=== PATIENT | female | born 1990 | race Caucasian/White ===

== ENCOUNTER 2019-01-16 17:03 | Emergency (ER) | payer SELFPAY ==
[2019-01-16 17:05] VITALS: BP 142/97; PULSE 89; RESP 18; TEMP 36.7; O2SAT 96; BMI 31.8
--- NOTE | 2019-01-16 17:53 | US_ITS ---
STUDY: ULTRASOUND OF THE FEMALE PELVIS - COMPLETE REASON FOR EXAM: Female, 29 years old. Pain. LMP: Unknown. TECHNIQUE: Transvaginal TECHNICAL QUALITY: Adequate. COMPARISON: None. FINDINGS: The uterus is anteverted and is in a midline position. The uterus measures 7.0 x 4.7 x 3.2 cm. Normal uterine cervix. The endometrium measures 2 mm in thickness, and is hyperechoic. There is no demonstrated endometrial mass. There is no demonstrated myometrial mass. I.U.D. - The patient does not have an I.U.D. The right ovary is visualized. The right ovary measures 2.7 x 1.9 x 1.6 cm. There is no right ovarian cyst or ovarian mass. There is no visualized right adnexal mass or complex lesion. There is normal arterial and normal venous vascularity. The left ovary is visualized. The left ovary measures 3.7 x 3.0 x 2.8 cm. There is 2.4 cm cyst. There is no visualized left adnexal mass or complex lesion. There is normal arterial and normal venous vascularity. There is no fluid in the cul-de-sac. US/Transvaginal Non- IMPRESSION: Left adnexal cyst. Electronically Signed: Matthew Ornelas MD at 19:28 EDT , Service support ,
--- NOTE | 2019-01-16 17:55 | ED.DCSUM_ITS ---
- ER Visit Summary Date of Service: 01/16/19 Chief Complaint: Vaginal bleeding History of Present Illness: The patient is a 29 F presenting with vaginal bleeding, left lower quadrant pain. Patient states she had a normal period December 31. She states she began spotting and then bleeding heavier today. She had took a test 4 days ago which was negative. She has a history of PCOS. She states she typically has regular periods. She denies fever. Denies urinary complaints. Denies other complaints. Physical Examination: Vitals are stable. Patient is afebrile. Alert no acute distress. HEENT exam is unremarkable. Neck is supple. Lungs are clear and equal bilaterally. Heart is regular rate and rhythm. Abdomen is soft mild left lower quadrant tenderness with no rebound or guarding. Left inguinal tenderness with no hernia palpated Extremities are unremarkable. Normal distal pulses. Skin is warm and dry. No focal neurologic deficit. Remainder of exam is unremarkable. Emergency Department Course and Treatment: Patient given morphine, Zofran IV. CBC, chemistries unremarkable. Urinalysis unremarkable. hCG negative. Pelvic ultrasound shows left adnexal cyst. Venous Doppler left lower extremity is normal. On reevaluation, patient states her symptoms have resolved. She is advised to follow-up with her [facility]. Advised return to ED for worsening complaints. Disposition: Discharge home Impression: Left adnexal cyst This note was generated with [employer] dictation software. It may contain incorrect words, spelling, and punctuation that were not noted in review of the chart prior to signing ED Disposition - Plan for ED Patient: Instructions: ABDOMINAL PAIN, Unknown Cause, (Female), Ovarian Cyst Prescriptions: Naproxen [Naprosyn] 500 mg PO BID PRN #20 tab Prescription Printed Referrals: Renee Fitzgerald, [facility] RUNNER-C [NON-STAFF] -
[2019-01-16] MEDS: Ondansetron 4 MG/2 ML Vial IV (18:03)
[2019-01-16] MEDS: Morphine 4 MG/ML Syringe IV (18:03)
--- NOTE | 2019-01-16 18:08 | US_ITS ---
STUDY: VENOUS DOPPLER ULTRASOUND - LEFT LOWER EXTREMITY REASON FOR EXAM: Female, 29 years old. Left pelvic pain. Left leg pain. TECHNIQUE: Ultrasound evaluation of the deep vein system to include rollins-scale imaging and compression was performed. Rollins-scale imaging and Doppler sonographic evaluation, including duplex spectral analysis and qualitative color flow sonography, was performed. COMPARISON: None. FINDINGS: Common Femoral Vein: Normal compression, spontaneity and augmentation. Normal color Doppler. Common Femoral Vein/Greater Saphenous Junction: Normal compression, spontaneity and augmentation. Normal color Doppler. Deep Femoral Vein: Normal compression, spontaneity and augmentation. Normal color Doppler. Femoral Proximal: Normal compression, spontaneity and augmentation. Normal color Doppler. Femoral Middle: Normal compression, spontaneity and augmentation. Normal color Doppler. Femoral Distal: Normal compression, spontaneity and augmentation. Normal color Doppler. Popliteal Vein: Normal compression, spontaneity and augmentation. Normal color Doppler. Posterior Tibial Vein: Normal compression, spontaneity and augmentation. Normal color Doppler. Peroneal Vein: Normal compression, spontaneity and augmentation. Normal color Doppler. There is no demonstrated deep venous thrombosis. US/Venous Duplex Imag/Limited/Uni IMPRESSION: Normal venous Doppler ultrasound of the lower extremity. Electronically Signed: Matthew Ornelas MD at 18:56 EDT , Service support ,
[2019-01-16 18:22] LABS: Bacteria 0 SEEN /hpf (None Seen); Mucous, Urine 0 SEEN /hpf (<or=2+); Red Blood Cells-Urine 0 SEEN /hpf (0-5); White Blood Cells 0 SEEN /hpf (0-5)
[2019-01-16 18:23] LABS: Absolute Lymphocyte Count 2.09 X10^3/ul (0.83-4.51); Absolute Neutrophil Count 3.9 X10^3/uL (2.0-7.7); Basophil# 0.04 X10^3/uL; Basophil% 0.6 % (0-1); Eosinophil# 0.32 X10^3/uL; Eosinophils% 4.5 % (0-5); Hematocrit 42.7 % (37-47); Hemoglobin 14.6 g/dl (12.0-15.0); Lymphocyte # 2.09 X10^3/ul (4.0); Lymphocyte % 29.5 % (19-41); Mean Corp Hgb Conc 34.2 g/gl (32-36); Mean Corpuscular Hgb 30.4 pg (27.0-32.0); Mean Platelet Vol. 11.4 fl (6.2-12.0); Monocyte# 0.72 X10^3/uL; Monocyte% 10.2 % (0-10); Neutrophil # 3.91 X10^3/uL (2.7-7.7); Neutrophil % 55.1 % (47-70); Platelet Count 217 K/mm3 (150-450); RBC Distribution Width CV 12.4 % (11.6-14.6); RBC Distribution Width SD 39.5 fl (35.1-43.9); White Blood Count 7.1 K/mm3 (4.4-11.0)
[2019-01-16 18:25] LABS: POSITIVE COUNT NO; POSITIVE DIFFERENTIAL NO; POSITIVE MORPHOLOGY NO
[2019-01-16 18:39] LABS: Color, Urine Yellow (Yellow); Glucose, Dipstick Normal (Normal); Ketone-Dipstick 5 mg/dl (Negative); Leukocyte Esterase-Dipstick 25 /ul (Negative); Nitrite-Dipstick Negative (Negative); Occult Blood-Urine 25 /ul (Negative); Protein-Dipstick 15 mg/dl (Negative); Urine Bilirubin Dipstick Negative (Negative); Urine Clarity Clear (Clear); Urine Urobilinogen Normal (Normal)
[2019-01-16 18:41] LABS: Anion Gap 4 (5-15); BUN 11 mg/dL (7-18); BUN/Creat Ratio 15.2 RATIO (10-20); Calcium,Total 8.8 mg/dL (8.5-10.1); Chloride 106 mmol/L (98-107); Creatinine, Serum 0.72 mg/dL (0.55-1.02); EST Glomerular Filtration Rate 103 mL/min (>60); Est Glom Filt Rate - Afr Amer 124 mL/min (>60); Estimated Creatinine Clearance 105.61 ml/min; Glucose 94 mg/dL (74-106); Internal QC Validated? YES +Cl - CLEAR BKGD; Potassium 3.9 mmol/L (3.5-5.1); Pregnancy, Serum, hCG Quali. NEGATIVE Negative; Sodium Level 137 mmol/L (136-145)
[2019-01-16 18:41] LABS: Squamous Epithelial Cells - UA 0-5 SEEN /hpf (5-10)
[2019-01-16 19:03] VITALS: RESP 20
--- NOTE | 2019-01-16 20:04 | ED.DEP ---
ED Disposition - Plan for ED Patient: Instructions: ABDOMINAL PAIN, Unknown Cause, (Female), Ovarian Cyst Prescriptions: Naproxen [Naprosyn] 500 mg PO BID PRN #20 tablet Referrals: Renee Fitzgerald NP-C [NON-STAFF] -
[2019-01-16 20:14] VITALS: BP 129/78; PULSE 84; RESP 16; O2SAT 99
--- NOTE | 2019-01-16 20:16 | ED.RN ---
THIS NURSE REVIEWED D/C INSTRUCTIONS WITH PT. PT VERBALIZED UNDERSTANDING OF INSTRUCTIONS. PT DENIES FURTHER NEEDS OR QUESTIONS AT THIS TIME. PT AMBULATES FROM ROOM ON OWN WITHOUT ASSISTANCE FROM STAFF
== END 2019-01-16 20:16 | disposition home or self-care (01) ==
LOC: ED 19:14
PROVIDERS: Emergency Provider Emergency Medicine
DX: N83.202 Unspecified ovarian cyst, left side (principal); E28.2 Polycystic ovarian syndrome; Z72.0 Tobacco use
CPT/HCPCS: 76830; 80048; 81001; 84703; 85025; 93971; 93976; 96374; 96375; 99283; A4216; J2405

== ENCOUNTER 2019-10-02 23:00 | Emergency (ER) | payer SELFPAY ==
[2019-10-02 23:01] VITALS: BP 152/104; PULSE 110; RESP 18; TEMP 36.6; O2SAT 96; BMI 37.8
--- NOTE | 2019-10-02 23:12 | EKG12_ITS ---
Test Reason : CP Blood Pressure : / mmHG Vent. Rate : 088 BPM Atrial Rate : 088 BPM P-R Int : 148 ms QRS Dur : 094 ms QT Int : 376 ms P-R-T Axes : 012 017 041 degrees QTc Int : 454 ms Normal sinus rhythm Normal ECG Confirmed by MANNY MATA, LORAINE ([id number]), sports editor GEMA NOGUEIRA ([id number]) on 10/03/2019 1:46:04 PM Referred By: MR Confirmed By:LORAINE BRYANT MD
--- NOTE | 2019-10-02 23:12 | RAD_ITS ---
STUDY: X-RAY CHEST REASON FOR EXAM: Female, 29 years old. Palpitations. Recent drug abuse. TECHNIQUE: Frontal and lateral views of the chest. COMPARISON: 05/19/2013. FINDINGS: The lungs are clear and expanded. There is no demonstrated pleural abnormality. Normal size heart. Normal mediastinum and mary. Normal visualized pulmonary arteries. Normal visualized aortic arch and descending thoracic aorta. Normal visualized thoracic spine. Normal visualized ribs, clavicles, and shoulders. There is no demonstrated abnormality of the visualized soft tissue structures of the upper abdomen. RAD/Chest PA and Lateral IMPRESSION: Normal x-ray examination of the chest. Electronically Signed: David Avery MD at 23:42 EDT , Service support ,
--- NOTE | 2019-10-02 23:13 | ED.RN ---
RN CALLED FOR EKG, PULLED OLD EKG FOR
--- NOTE | 2019-10-03 00:12 | ED.VIS.GEN ---
History of Present Illness Chief Complaint: Palpitations Narrative: Patient presenting for evaluation due to palpitations. Patient reports that she tried methamphetamine last night and this morning for the first time. She reports that she was intoxicated on alcohol, sought it out, and the last time she used it was 8:00 this morning. She reports that throughout the course of the day today she has been having issues with palpitations shortness of breath, and then tonight she reports that she had a feeling of tingling in her face and her hands bilaterally. Patient denies any other coingestants. She denies any fever cough nausea vomiting diarrhea or any other infectious signs or symptoms. No exacerbating relieving factors. Review of systems otherwise negative. Past Medical History - Allergies and Home Meds Allergies/Adverse Reactions: Allergies omeprazole [From Prilosec] Allergy (Verified 10/02/19 23:04) Itching omeprazole magnesium [From Prilosec] Allergy (Verified 10/02/19 23:04) Itching Primary Care Physician: Care Physician,No Primary [Primary Care Provider] - Past Medical History: - - Psych Smoking Status: Current every day smoker Review of Systems All systems negative except as indicated General: Denies: Chills, Fever, Sweats Eyes: Denies: Visual changes - bilaterally, Diplopia ENT: Denies: Rhinorrhea, Sore throat Cardiovascular: Reports: Palpitations Respiratory: Reports: Dyspnea Gastrointestinal: Denies: Abdominal pain, Nausea, Vomiting, Diarrhea, Melena, Hematochezia Genitourinary: Denies: Dysuria, Hematuria, Frequency Musculoskeletal: Denies: Back pain, Extremity Pain Skin: Denies: Rash, Wounds Neurological: Reports: Parasthesia Physical Exam Vital Signs/Narrative: Vital Signs Temp Pulse Resp BP Pulse Ox 10/02/19 23:01 97.9 F 110 H 18 152/104 H 96 Inital Vital Signs reviewed: Yes General: Well nourished, Well developed, No Acute Distress Head: Normocephalic, Atraumatic Eyes: Perrl, EOMI, - - Dilated pupils ENT: Moist mucous membranes, No rhinorrhea Neck: Supple, Nontender Cardiovascular: Regular rhythm, No murmurs, Tachycardia Respiratory: No distress, CTA bilaterally, Chest nontender Abdomen: Soft, Nontender, Nondistended, Normal bowel sounds Back: Nontender, Normal Inspection Extremities: Nontender, No edema Skin: Normal color, No rash Neurological: Alert, Oriented x3, Cranial nerves II-XII grossly intact, Normal Strength, Normal Sensation Psychological: Tearful Diagnostic/Tx/Re-eval Chest X-Ray - ED: 2 View, Read by ED Physician, Read by Radiologist, Normal - EKG Initial EKG Interpretation: - - Sinus rhythm of [address] segments normal T waves normal VT and QTc intervals no evidence of WPW or Brugada morphology, no evidence of acute ischemia or arrhythmia. - Medical Decision Making Patient presented with perioral tingling and palpitations after taking methamphetamine. EKG was found to be unremarkable. Chest was found to be unremarkable by my personal review as well as radiology. Patient has only mild intermittent tachycardia with her EKG actually showing a heart rate of 88. Her symptomatology likely is all secondary to methamphetamine. Patient does not appear to have a history of abuse, but she did drive herself here so I will provide the patient with a prescription for #1 Ativan to be taken at home to help alleviate her symptoms. I told her to not do drugs anymore. ED Disposition - Plan for ED Patient: Disposition: Home or Assisted Living Diagnosis: Methamphetamine abuse Instructions: Understanding Methamphetamine Abuse and Addiction Prescriptions: Lorazepam [Ativan] 1 mg PO X1 #1 tablet Referrals: Rosalva Becerril [NON-STAFF] -
[2019-10-03 00:37] VITALS: BP 130/82; PULSE 91; RESP 16; O2SAT 99
== END 2019-10-03 00:38 | disposition home or self-care (01) ==
PROVIDERS: Emergency Provider Emergency Medicine
DX: R00.2 Palpitations (principal); F15.10 Other stimulant abuse, uncomplicated; F17.200 Nicotine dependence, unspecified, uncomplicated
CPT/HCPCS: 71046; 93005; 99282

== ENCOUNTER 2019-10-13 05:25 | Emergency (ER) | payer SELFPAY ==
[2019-10-13 05:26] VITALS: BP 142/88; PULSE 102; RESP 18; TEMP 36.8; O2SAT 97; BMI 38.8
--- NOTE | 2019-10-13 05:32 | ED.VIS.LOWEX ---
History of Present Illness Chief Complaint: Laceration Informant: Patient Occurred: Hours - 1 Mechanism/Context: Injury Context: Sudden Onset Timing: Continuous Quality of Pain: - - sore Location: right foot Current Severity: Moderate Maximum Severity: Moderate Worsened by: touching affected area Relieved by: leaving it alone Associated Symptoms: Parasthesia - in toes; gone now. Negative for: Weakness, Loss of Funtion Narrative: Patient states she was at her apartment tonight, she was taking laundry out of her apartment and a basket down to the laundry area, she had her hands full and was trying to manipulate the large heavy door that leads in and out of her apartment, and the corner cut her foot as it slammed closed on her foot. She sustained a laceration and had a lot of bleeding that was later controlled with pressure and a bandage. She states she is able to walk on it without any significant difficulty or pain unless she touches the affected area on the dorsum of her foot. Tetanus Immunization: 5-10 years - Past Medical History (1) PCOS (polycystic ovarian syndrome) Status: Chronic Past Medical History - Allergies and Home Meds Allergies/Adverse Reactions: Allergies omeprazole [From Prilosec] Allergy (Verified 10/13/19 05:28) Itching omeprazole magnesium [From Prilosec] Allergy (Verified 10/13/19 05:28) Itching Primary Care Physician: Care Physician,No Primary [Primary Care Provider] - Lives: Alone Smoking Status: Current every day smoker Review of Systems Musculoskeletal: Reports: Extremity Pain - at skin wound. Denies: Swelling Skin: Reports: Wounds Neurological: Reports: Parasthesia - resolved. Denies: Headache, Weakness Physical Exam Vital Signs/Narrative: Vital Signs Temp Pulse Resp BP Pulse Ox 10/13/19 05:26 98.2 F 102 H 18 142/88 H 97 Inital Vital Signs reviewed: Yes - Extremity Exam Right Foot: - - Irregular clean-appearing full-thickness laceration dorsum of the right foot, more on the peroneal aspect of it along the third-fourth metatarsals area, approximately 8 cm General: Well nourished, Well developed, Obese, - - No acute distress. Smells of alcohol. Head: Normocephalic, Atraumatic Respiratory: No distress Skin: Normal color, Trauma - See above. Laceration right foot. Neurological: Alert, Oriented x3, Cranial nerves II-XII grossly intact, Normal Strength, Normal Sensation, Normal Gait Psychological: Normal affect, Normal Mood Diagnostic/Tx/Re-eval - Medical Decision Making Laceration was repaired, there was no apparent tissue loss it was V-shaped and clean. I inspected the wound prior to repairing it, the investing fascia over the extensor tendons was penetrated, but all of the tendons appear to be intact and the extensor function appears to be intact from all toes. To prophylax against infection given the deep layers being penetrated, she will be placed on Keflex for the next 5 days. Advised suture removal 10-14 days. Procedures - Lacerations R foot Length: 8 cm Depth: Fascia Shape: V-shaped Prep: Sterile Conditions, Chlorhexadine Laceration repair: Irrigated, Lidocaine - 7cc, 1% plain, Local Irrigated (ml): 150 Number of Sutures/Donnell: 14 Suture Information: Ethilon, Simple, 4-0 ED Disposition - Plan for ED Patient: Disposition: Home or Assisted Living Diagnosis: Laceration of right foot excluding toes Instructions: LACERATION, Foot Prescriptions: Cephalexin [Keflex] 500 mg PO BID #10 cap Transmission Status: Pending to [facility]30 Referrals: Rosalva Becerril [NON-STAFF] - 10-14 Days suture removal (or ER)
[2019-10-13 06:25] VITALS: BP 132/80; PULSE 88; RESP 18; O2SAT 98
== END 2019-10-13 06:35 | disposition home or self-care (01) ==
PROVIDERS: Emergency Provider Emergency Medicine
DX: S91.311A Laceration without foreign body, right foot, initial encounter (principal); W22.09XA Striking against other stationary object, initial encounter; Y93.9 Activity, unspecified; Y92.038 Other place in apartment as the place of occurrence of the external cause; Y99.9 Unspecified external cause status; E28.2 Polycystic ovarian syndrome; F17.200 Nicotine dependence, unspecified, uncomplicated
CPT/HCPCS: 12004; 99283

== ENCOUNTER 2020-07-02 09:00 | Outpatient (RCR) | payer MEDICAID, SELFPAY | END 2020-07-02 23:59 | disposition home or self-care (01) | LOC: NS 09:00 | PROVIDERS: Visit Provider Obstetrics & Gynecology | DX: Z71.3 Dietary counseling and surveillance (principal); O24.414 Gestational diabetes mellitus in pregnancy, insulin controlled; Z3A.00 Weeks of gestation of pregnancy not specified | CPT/HCPCS: 97802 ==

== ENCOUNTER → 2020-07-18 17:03 | Outpatient (CLI) | payer MEDICAID, SELFPAY | PROVIDERS: Visit Provider Obstetrics & Gynecology | DX: Z03.818 Encounter for observation for suspected exposure to other biological agents ruled out (principal) | CPT/HCPCS: 87635; C9803; U0003 ==

== ENCOUNTER 2020-07-23 18:50 | Inpatient (IN) | payer MEDICAID, SELFPAY ==
[2020-07-23] VITALS (9 sets, daily range): BP systolic 122–141; BP diastolic 61–82; PULSE 65–103; TEMP 36.3–37.1; O2SAT 97–99; BMI 43.5
[2020-07-23] MEDS: Lactated Ringers 1,000 ML 50 ML IV (19:25)
[2020-07-23 19:45] LABS: Absolute Lymphocyte Count 1.88 X10^3/uL (0.83-4.51); Absolute Neutrophil Count 11.2 X10^3/uL (2.0-7.7); Basophil# 0.03 X10^3/uL; Basophil% 0.2 % (0-1); Eosinophil# 0.09 X10^3/uL; Eosinophils% 0.7 % (0-5); Hematocrit 35.9 % (37-47); Hemoglobin 11.6 g/dL (12.0-15.0); Lymphocyte # 1.88 X10^3/ul (4.0); Lymphocyte % 13.6 % (19-41); Mean Corp Hgb Conc 32.3 g/dL (32-36); Mean Corpuscular Hgb 26.5 pg (27.0-32.0); Mean Corpuscular Volume 82.2 fL (81-99); Mean Platelet Vol. 11.1 fl (6.2-12.0); Monocyte# 0.52 X10^3/uL; Monocyte% 3.8 % (0-10); NRBC Flagged by Analyzer 0 % (0-5); Neutrophil # 11.15 X10^3/uL (2.7-7.7); Neutrophil % 80.7 % (47-70); Platelet Count 261 K/mm3 (150-450); RBC Distribution Width CV 13.3 % (11.6-14.6); RBC Distribution Width SD 39.6 fl (35.1-43.9); Red Blood Count 4.37 M/mm3 (4.2-5.4); White Blood Count 13.8 K/mm3 (4.4-11.0)
[2020-07-23 19:46] LABS: Bedside Glucose 155 mg/dL (70-110)
[2020-07-23] MEDS: miSOPROStol 25 MCG TABLET PO (19:56)
--- NOTE | 2020-07-23 20:10 | NURSING ---
pt reports being put on low carb diet during the end of her .
[2020-07-23 22:51] LABS: Bedside Glucose 110 mg/dL (70-110)
[2020-07-23 22:51] LABS: Bedside Glucose 104 mg/dL (70-110)
[2020-07-24] VITALS (47 sets, daily range): BP systolic 97–156; BP diastolic 50–84; PULSE 58–212; RESP 16–18; TEMP 36.2–36.8; O2SAT 89–100
[2020-07-24] MEDS: miSOPROStol 50 MCG TABLET PO (00:32)
[2020-07-24 03:01] LABS: Bedside Glucose 88 mg/dL (70-110)
[2020-07-24] MEDS: Acetaminophen 500 MG Tablet PO (03:33)
[2020-07-24 07:25] LABS: Bedside Glucose 88 mg/dL (70-110)
--- NOTE | 2020-07-24 07:33 | PCM.HP.OB ---
- Problem List (1) 37 weeks gestation of Status: Acute (2) Primiparous Status: Acute (3) GDM, class A2 Status: Acute (4) Obesity affecting Status: Acute (5) Tobacco use complicating Status: Acute History Date of Admission: 07/24/20 Final [facility]: 08/12/20 Gestational age: 37 Weeks and 2 Days History of this : This is a 30 year-old at 37w2d who presents for scheduled IOL. Medical History: Medical History (Last Updated 07/24/20 @ 07:[address] Jolene Suh, DO) Gestational diabetes O24.419 History of PCOS Z87.42 History of anxiety Z86.59 History of borderline personality disorder Z86.59 Allergies amoxicillin Allergy (Verified 07/23/20 19:30) Rash omeprazole [From Prilosec] Allergy (Verified 07/23/20 19:31) Itching omeprazole magnesium [From Prilosec] Allergy (Verified 07/23/20 19:31) Itching Home Medications: Home Medications Bupropion HCl [Wellbutrin Sr] 100 mg PO DAILY 01/16/19 Escitalopram Oxalate [Lexapro] 20 mg PO DAILY 01/16/19 Aspirin [Aspirin, Baby] 81 mg PO DAILY 07/23/20 Insulin NPH Human [Humulin N Pen] 14 units SQ QHS 07/23/20 Pnv No.95/Ferrous Fum/Folic AC [ Caplet] 1 tab PO DAILY 07/23/20 Smoking Status: Current every day smoker Substance Use Type: Anxiety Medications Number of Fetus(es): 1 NST - FHR Rate Baby A FHR Category:: Category I Uterine Activity:: Occasional ctx's History Past Pregnancies: Past Pregnancies Delivery Date Name GA/ Weeks Outcome Route Wt Sex Labor Length Anesthesia Delivery Location Provider FOB Labs: See [facility] record Expected Delivery Method: Spontaneous Vaginal Review of Systems Gastrointestinal: Denies: Abdominal Pain Gynecological: Denies: Vaginal bleeding Physical Exam Vitals: Vital Signs Temp Pulse BP Pulse Ox 98.2 F 72 120/64 100 07/24/20 07:19 07/24/20 07:18 07/24/20 07:18 07/24/20 03:36 General: Alert, No apparent distress HEENT: Atraumatic Abdomen: Soft, Non Tender, Gravid Extremities:: No edema Neurological: Neuro grossly intact 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 - Cytotec x 2 overnight. Intracervical mays placed this AM in usual fashion - Pit per protocol - Epidural prn - A2GDM: Diabetic protocol - EFW 5 lb 15 oz on 07/17/2020. EFW expected to be < 4500 g and pelvis adequate. Anticipate - Covid negative - GBS negative
[2020-07-24] MEDS: 0.9% Normal Saline Single 100 ML IV.SOLN. INTRA-UTER (07:44)
[2020-07-24] MEDS: Oxytocin 30 units/NS 500 ml 30 UNITS/500 ML IV.SOLN IV (07:45)
[2020-07-24] MEDS: fentaNYL 100 MCG/2 ML Ampul IV (07:49)
[2020-07-24] MEDS: Lactated Ringers 500 ML 999 ML IV (10:08)
[2020-07-24] MEDS: fentaNYL-bupivacaine (epidural) 100 ML BAG EPIDURAL ×2 (10:59→15:10)
[2020-07-24 11:15] LABS: Bedside Glucose 83 mg/dL (70-110)
[2020-07-24] MEDS: Lactated Ringers 1,000 ML 200 ML IV ×2 (12:21→16:04)
[2020-07-24 12:31] LABS: Bedside Glucose 72 mg/dL (70-110)
[2020-07-24 13:56] LABS: Bedside Glucose 70 mg/dL (70-110)
[2020-07-24 15:36] LABS: Bedside Glucose 67 mg/dL (70-110)
[2020-07-24] MEDS: Oxytocin 30 units/NS 500 ml 30 UNITS/500 ML IV.SOLN 334 UNITS IV (17:10)
--- NOTE | 2020-07-24 17:39 | PCM.OPRPT ---
Problem List (1) 37 weeks gestation of Status: Acute (2) Primiparous Status: Acute (3) GDM, class A2 Status: Acute (4) Obesity affecting Status: Acute (5) Tobacco use complicating Status: Acute Report of Operation Date of Procedure: 07/24/20 Pre-Operative Diagnosis: 37 week gestation, A2GDM, poor interval growth, primiparous patient Post-Operative Diagnosis: As above Surgery/Procedure Performed:: Type of Anesthesia:: Epidural Special Medications: None Specimen's removed: Placenta Drains: Amador Estimated Blood Loss (mL): 500 Description of Procedure: The infant was delivered before I entered the room by the nursing staff, and the cord was already clamped and cut. I performed fundal massage and the placenta delivered intact and normal appearing with a 3 VC. The uterus was explored and noted to be boggy. The uterus firmed up with fundal massage and pitocin. Fundus was then firm and bleeding hemostatic. A 1st degree perineal laceration was repaired with 3-0 in usual fashion. A vaginal sweep was performed and sponge count was correct. Grafts/Implants Used: None - Complications None - Admit VTE Documentation VTE Present on Admission: No VTE Mechan Device Prophylaxis: None VTE Pharm Prophylaxis ordered?: No Vaginal Delivery Maternal Presentation: Medically Indicated Induction - Per MFM for A2GDM and poor interval growth Method of Induction: Pitocin, Amador Bulb, Amniotomy, Cytotec Amniotic Membrane Rupture Type: Artificial Amniotic Fluid Description: Clear Surgery/ Procedure Performed: Spontaneous Vaginal Delivery Type of Anesthesia: Epidural Presentation: Vertex Placental Delivery Description: Expressed Cord Entanglement: None Drain: Amador to straight drain A gender: Male (1 minute): 8 (5 minute): 9 Episiotomy Description: None Laceration: 1st degree Medications given after delivery: IV Pitocin Complications: None
[2020-07-24 20:01] LABS: Bedside Glucose 60 mg/dL (70-110)
[2020-07-24 20:11] LABS: Bedside Glucose 106 mg/dL (70-110)
--- NOTE | 2020-07-24 20:19 | NURSING ---
Recovery BGT 106. No symptoms
[2020-07-24] MEDS: Acetaminophen 500 MG Tablet 1000 MG PO (20:23)
[2020-07-24 21:51] LABS: Amphetamine Urine VISTA NEGATIVE (<1000 ng/mL); Barbiturate Urine VISTA NEGATIVE (< 200 ng/mL); Benzodiazepine Urine VISTA NEGATIVE (< 200 ng/mL); Cocaine Urine VISTA NEGATIVE (< 300 ng/mL); Ecstacy Urine VISTA NEGATIVE (< 500 ng/mL); Methadone Urine VISTA NEGATIVE (< 300 ng/mL); PCP Urine VISTA NEGATIVE (< 25 ng/mL); THC Urine VISTA NEGATIVE (< 50 ng/mL); Vista UDS pH Range 6
[2020-07-25] VITALS (7 sets, daily range): BP systolic 110–144; BP diastolic 66–82; PULSE 68–80; RESP 16–18; TEMP 36.3–36.9; O2SAT 97–99
[2020-07-25] MEDS: Ibuprofen 600 MG Tablet PO ×2 (02:55→15:16)
[2020-07-25 06:06] LABS: Bedside Glucose 90 mg/dL (70-110)
[2020-07-25] MEDS: Acetaminophen 500 MG Tablet 1000 MG PO (12:18)
--- NOTE | 2020-07-25 13:00 | CASEMGMT ---
Social Work Assessment Labor and Delivery Unit Patient Address: [address] [place] [address], [address], [place] [address] Phone number: [phone] Date of Referral: Time of Referral: 632 Referred By: Dr. Monge Date of Intervention: 07.25.2020 Time of Intervention: 1300 Reason for Referral: maternal history of depression, anxiety, borderline personality disorder History obtained from: Medical records and mother of baby (MOB) Nadia Barroso; father of baby (FOB) Mono Ledesma present for part of conversation. Household composition: MOB reports to have own apartment, and plans to take baby to this residence. FOB does not live in the home, but spends time between MOB's and another place. Patient's parent/guardian status: MOB is a 30 year old single Caucasians female, involved with 28 year old father of baby since October 2019. When alone with MOB, MOB denied any history of abuse/control/intimidation issues in relationship with the FOB. baby is the first for MOB and FOB together and the 3rd for the FOB. baby is to be named Linwood Ledesma (born 07.24.2018). FOB's other children include Farida (10) and Jerry (2). FOB sees the oldest but not the 2 year old. Medical History: MOB is G1, P0 to 1 after delivering Linwood. care started at 7 weeks gestation and regular thereafter. FARHAD did have gestational diabetes and concern for adherence regarding management of the GDM. MOB with history of PCOS. Baby Linwood delivered on 07.24.2020 at 37.2 weeks gestation. Apgars 8 and 9 at 1 and 5 minutes of life respectively. Educational Status: FARHAD has high school education. No reported issues with reading, writing, or learning comprehension. 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 FOB reports to drive for [employer]. Infant Supplies: MOB reports to have all needed supplies, and that her friend Chel helped out with much of the supplies. Report to have a bassinet, crib, car seat, clothing, and other needed items. MOB is planning to breast feed . Childcare/Caregiver(s): MOB plans to be the primary caregiver to . Plan to look into Chel watching Linwood when MOB returns to work. Transportation: MOB reports to have adequate transportation. Programs/Agencies Involved: Reports to have WIC and then medicaid through [facility]. Active with [facility] for psychiatry. Declines referrals to [facility] or [facility]. Children Services/Legal Issues: None reported. Behavioral Health Issues: Mental Health History: MOB reports history of depression, anxiety, Borderline Personality Disorder. Reports has been on medicine since the age of 24. Reports to adhere to medication regiment prescribed by Beatriz Paul at [facility]. Chart indicates MOB with history of suicidal ideation, which MOB reports was several years ago and no issues since. MOB with a score of 5 on the [facility] depression screen today. Substance Use History: MOB denied any history of substance use to this law writer, however upon social science instructor mentioning that methamphetamine use is listed as a problem in the MOB's summary tab in the medical record (September 2019), the MOB did report meth use was one time and nothing further after the one time. MOB reports did have to come to the hospital for the use. MOB denies alcohol use in , and denies other illicit drug use history such as marijuana, heroin, cocaine, pills. MOB does use tobacco and cut down from one pack per day to a half a pack per day. Family History: Records indicate FARHAD's sister with history of ADD. INGRID is reported to have anxiety, depression, and bipolar disorder Drug Screens: Maternal drug screen negative on 12.26.2019. Baby's urine drug screen negative and meconium is pending. Coping Skills: smoking cigarettes. Family/Social Stressors: MOB reports there is stress with the FOB, but reports to love FOSophy and that INGRID is a good person. FARHAD reports INGRID has a lot of growing up to do, as well as wishes INGRID would get rid of his dogs. INGRID reports he has has housing instability this year, working with [employer] for rapid rehousing program and then having a house fire, and now living between MOB's home and another person's home. INGRID reports he cant' live with the MOB due to having dogs. Baby has been admitted to the [facility] at [place] for issues related to hypoglycemia. Support Systems: MOB reports her mother will be coming to the home after discharge, and staying to help out. FOB is to also be a support, but again MOB has mentioned stress. Depression/Shaken Baby/Safe Sleeping: MOB able to give appropriate responses on safe sleeping and reports has had information on this. FOB able to say would call someone for shaken baby prevention. MOB made inappropriate comment when asked about shaken baby prevention, and never really answered the question. Educated MOB and FOB that depression and anxiety can hit both moms and dads. Educated to risk factors, as well a time frames. Broached some of the common symptoms to look out for. ASSESSMENT: Met with MOB and FOB together, and then alone with MOB where the [facility] depression screen was completed. Educated MOB that this law writer works for [employer] [employer] [facility], but also provides social work to the [facility] where baby is at, so talking with MOB today for both units. MOB was cooperative overall with answering questions, but at times was guarded such as when MOB reported that did not care to discuss history of methamphetamine use. When this law writer educated that substance use questions were normal part of assessment, MOB did say this was a one time use and nothing thereafter; no other details shared. MOB's mood was slightly labile going from smiling/laughing, to irritable, to crying at one point (after the FOB left the room). Eye contact normal. MOB admitted to feeling overwhelmed with all of the paperwork, and admitted to being confused about what was needed for the FOB to be on the certificate. MOB voiced belief she was the one who needed to sign the paternity affidavit. Educated MOB to the process, and retrieved the paperwork from the chart for MOB to complete with the FOB's information. MOB reports to be feeling tired. Explored with MOB as to how MOB usually boris, which MOB reports as cigarettes and is why I didn't quit. MOB reports doesn't really want to go out and smoke now if can help it, as feels weird smoking and knowing that cigarette use in could have affected the baby. Note, MOB did cuss and make comment this law writer could not quite catch when this law writer asked about shaken baby prevention. MOB never able to verbalize an appropriate answer. Educated that okay to put baby down for short times, in the crib, and walk away for 10 minutes or to call for help if needed. Provided MOB with [facility] resource list and a packet on mod and anxiety disorders. Reviewed with MOB, who was polite, but appearing disinterested in the information. MOB did express thanks for this law writer getting MOB some coffee to drink. Safe Plan of Care for infant related to substance use: Reports does not use drugs, and use of drugs this year was a one time thing. PLAN: MOB will discharge home when ready. Baby is in the SCN and followed by social work. Social work to continue to monitor and assist. Possible need for children services referral for possible dependency case (mental health for both parents, limited coping and support system; remote history of methamphetamine use). -OLU Schwarz, WAREHOUSE STOCKER *Information documented in this assessment generated with [employer] System*
--- NOTE | 2020-07-25 13:25 | PN.OBGYN_ITS ---
Patient Problems: Active and Suspected Problems (Last Updated 07/24/20 @ 07:[address] Jolene Suh, DO) 37 weeks gestation of (Acute) Primiparous (Acute) GDM, class A2 (Acute) Obesity affecting (Acute) Tobacco use complicating (Acute) Subjective: No complaints - Physical Exam Vitals/I&O's: Vital Signs Temp Pulse Resp BP Pulse Ox 97.4 F L 80 16 128/79 H 99 07/25/20 09:06 07/25/20 08:52 07/25/20 08:52 07/25/20 08:52 07/25/20 08:52 Oxygen Delivery Method Room Air Weight: 261 lb 11.019 oz Body Mass Index (BMI) 43.5 Intake and Output for Last 24 Hours 07/23/20 07/24/20 07/25/20 23:59 23:59 23:59 Intake Total 240 / 240 3718.60 / 3718.60 Output Total 2350 / 2350 450 / 450 Balance 240 / 240 1368.60 / 1368.60 -450 / -450 General: Alert, Oriented x3 Abdomen: Soft, Non Tender, Non-Distended - ff mid & below umb Extremities: No Calf Tenderness Neurological: Cranial nerves II-XII grossly intact Laboratory Results 07/24/20 13:41: POC Glucose 70 07/24/20 15:32: POC Glucose 67 L 07/24/20 16:23: POC Glucose 60 L 07/24/20 19:00: Urine Opiates Screen NEGATIVE, Urine Methadone Screen NEGATIVE, Ur Barbiturates Screen NEGATIVE, Ur Phencyclidine Scrn NEGATIVE, Ur Amphetamines Screen NEGATIVE, U Methamphetamin-MDMA NEGATIVE, U Benzodiazepines Scrn NEGATIVE, Urine Cocaine Screen NEGATIVE, U Cannabinoids Screen NEGATIVE, Ur Drug Screen Comment 07/24/20 20:02: POC Glucose 106 07/25/20 06:01: POC Glucose 90 Current Medications Acetaminophen (Acetaminophen 500 Mg Tablet) 1,000 mg PO Q8H PRN PRN PRN Reason: Pain Score 1-10 Last Admin: 07/25/20 12:18 Dose: 1,000 mg Documented by: Bisacodyl (Bisacodyl 10 Mg Suppository) 10 mg RECTAL UD PRN PRN Reason: If no BM Dibucaine (Dibucaine 30 Gm Tube) 1 applic TOPICAL TID PRN PRN; Protocol PRN Reason: Discomfort Hydrocortisone (Hydrocortisone 2.5% Crm) 1 applic TOPICAL TID PRN PRN; Protocol PRN Reason: Discomfort Ibuprofen (Ibuprofen 600 Mg Tablet) 600 mg PO Q6H PRN PRN PRN Reason: Pain Score 1-10 Last Admin: 07/25/20 02:55 Dose: 600 mg Documented by: Methylergonovine Maleate (Methylergonovine 0.2 Mg/Ml Ampul) 0.2 mg IM X1 PRN PRN Reason: Excess bleeding/uterine atony Ondansetron HCl (Ondansetron 4 Mg/2 Ml Vial) 4 mg IV Q4H PRN PRN PRN Reason: Nausea Senna/Docusate Sodium (Senna/Docusate Sodium 1 Tablet) 1 - 2 tablet PO DAILY PRN PRN PRN Reason: Constipation Simethicone (Simethicone 80 Mg Tablet) 80 mg PO PCHS PRN PRN Reason: Indigestion/Stomach pain Sodium Chloride (0.9% Saline Lock 10 Ml Syringe) 5 - 15 ml IV UD PRN PRN Reason: SALINE FLUSH Medical Necessity - Tobacco Use Smoking Status: Current every day smoker Assessment/Plan All Active Problems (Last Updated 07/24/20 @ 07:[address] Jolene Suh, DO) 37 weeks gestation of (Acute) Primiparous (Acute) GDM, class A2 (Acute) Obesity affecting (Acute) Tobacco use complicating (Acute) PPD#1 Routine care GDM - FBS this am normal Baby in [facility] Social work consult in progress
[2020-07-26 01:27] VITALS: BP 90/74; PULSE 74; RESP 16; TEMP 36.3
[2020-07-26] MEDS: Ibuprofen 600 MG Tablet PO (01:28)
[2020-07-26 08:15] VITALS: BP 104/71; PULSE 78; RESP 18; TEMP 36.8
--- NOTE | 2020-07-26 11:00 | PCM.PN.OB ---
Patient Problems: Active and Suspected Problems (Last Updated 07/24/20 @ 07:[address] Jolene Suh, DO) 37 weeks gestation of (Acute) Primiparous (Acute) GDM, class A2 (Acute) Obesity affecting (Acute) Tobacco use complicating (Acute) Subjective: Doing well per patient and nursing staff. Ambulating and taking PO without difficulty. Voiding and passing flatus. Pumping breastmilk. Baby in SCN. Denies any headache, visual changes, chest pain, shortness of breath, leg pain or increased bleeding. Lochia normal. Pain controlled. Planning D/C to hotel status today. - Physical Exam Vitals/I&O's: Vital Signs Temp Pulse Resp BP Pulse Ox 98.2 F 78 18 104/71 97 07/26/20 08:15 07/26/20 08:15 07/26/20 08:15 07/26/20 08:15 07/25/20 16:30 Oxygen Delivery Method Room Air Weight: 261 lb 11.019 oz Body Mass Index (BMI) 43.5 Intake and Output for Last 24 Hours 07/24/20 07/25/20 07/26/20 23:59 23:59 23:59 Intake Total 3718.60 / 3718.60 Output Total 2350 / 2350 450 / 450 Balance 1368.60 / 1368.60 -450 / -450 General: Alert, Oriented x3, Cooperative HEENT: Atraumatic, Normocephalic Neck: Trachea Midline Lungs: Clear to auscultation, Normal air movement, No rhonchi, No wheeze Cardiovascular: Regular rate, Regular Rhythm, No murmurs Abdomen: Bowel Sounds Present, Soft, Hypoactive Bowel Sounds Extremities: Edema - +1 BLE edema. Heidy's negative bilaterally Psych/Mental Status: Normal Affect, Appropriate Current Medications Acetaminophen (Acetaminophen 500 Mg Tablet) 1,000 mg PO Q8H PRN PRN PRN Reason: Pain Score 1-10 Last Admin: 07/25/20 12:18 Dose: 1,000 mg Documented by: Bisacodyl (Bisacodyl 10 Mg Suppository) 10 mg RECTAL UD PRN PRN Reason: If no BM Dibucaine (Dibucaine 30 Gm Tube) 1 applic TOPICAL TID PRN PRN; Protocol PRN Reason: Discomfort Hydrocortisone (Hydrocortisone 2.5% Crm) 1 applic TOPICAL TID PRN PRN; Protocol PRN Reason: Discomfort Ibuprofen (Ibuprofen 600 Mg Tablet) 600 mg PO Q6H PRN PRN PRN Reason: Pain Score 1-10 Last Admin: 07/26/20 01:28 Dose: 600 mg Documented by: Methylergonovine Maleate (Methylergonovine 0.2 Mg/Ml Ampul) 0.2 mg IM X1 PRN PRN Reason: Excess bleeding/uterine atony Ondansetron HCl (Ondansetron 4 Mg/2 Ml Vial) 4 mg IV Q4H PRN PRN PRN Reason: Nausea Senna/Docusate Sodium (Senna/Docusate Sodium 1 Tablet) 1 - 2 tablet PO DAILY PRN PRN PRN Reason: Constipation Simethicone (Simethicone 80 Mg Tablet) 80 mg PO PCHS PRN PRN Reason: Indigestion/Stomach pain Sodium Chloride (0.9% Saline Lock 10 Ml Syringe) 5 - 15 ml IV UD PRN PRN Reason: SALINE FLUSH Medical Necessity - Tobacco Use Smoking Status: Current every day smoker Assessment/Plan All Active Problems (Last Updated 07/24/20 @ 07:[address] Jolene Suh, DO) 37 weeks gestation of (Acute) Primiparous (Acute) GDM, class A2 (Acute) Obesity affecting (Acute) Tobacco use complicating (Acute) A:PPD #2 GDM A2 P: 1) Routine and discharge instructions. 2) Motrin for pain relief, declines prescription 3) D/C to hotel status 4) Follow up in 2 weeks and 6 weeks
--- NOTE | 2020-07-26 11:06 | DCINST_ITS ---
Discharge Diet: No Restrictions Discharge Activity: Return to Normal Activity, May Drive, May Shower, May Take a Tub Bath May resume sexual activity in: 4-6 weeks Weight Bearing Status: Full weight bearing Additional Activity Instructions:: Nothing in the vagina for 4-6 weeks. You may return to work/school in 6 weeks. Call your doctor if your incision/area has: Continuous Slow Oozing, Sudden Increased Bleeding, Increased Pain/ Swelling, Increased Redness, Foul Smelling Discharge Call your doctor if you observe: Fever of 101 or Higher, Inability to urinate, Inability to have a bowel movement, Using more than one pad per hour, Shortness of breath, Chest pain, Increased palpitations (irregular heartbeat), Calf discomfort, Uncontrolled pain Additional Instructions: If you experience any of the following, contact your healthcare provider. * Bleeding that soaks a pad every hour for 2 hours * Fever 100.4 or higher * Unrelieved incision or abdominal pain * Swelling, redness, discharge or bleeding from your incision or episiotomy site * Your incision begins to separate * Problems urinating (including inability to urinate or burning while urinating). * Visual changes * Severe headache * Flu-like symptoms * Pain or redness in one of both of your breasts * Pain, warmth, tenderness or swelling in your legs, especially the calf area * Frequent nausea and vomiting * Symptoms of depression or anxiety If you experience any of the following, call 911 or go to the nearest Emergency Room. * Chest pain * Problems breathing * Seizure activity * Partial or complete paralysis of a body part, slurred speech, weakness or drooping of the face, or a sudden inability to walk or hold your balance Allergies/Adverse Reactions: Allergies amoxicillin Allergy (Verified 07/23/20 19:30) Rash omeprazole [From Prilosec] Allergy (Verified 07/23/20 19:31) Itching omeprazole magnesium [From Prilosec] Allergy (Verified 07/23/20 19:31) Itching Medications to take at Discharge Bupropion HCl [Wellbutrin Sr] 100 mg PO DAILY 01/16/19 Escitalopram Oxalate [Lexapro] 20 mg PO DAILY 01/16/19 Pnv No.95/Ferrous Fum/Folic AC [ Caplet] 1 tab PO DAILY 07/23/20 Please Follow Up With: When: Call to make an appointment with your doctor in 2 weeks and 6 weeks. If you had elevated Blood Pressure or 4th degree laceration you will need to be seen in 2 weeks. Primary Care Physician: Care Physician,No Primary [Primary Care Provider] - Test Results: Test results from this visit will be discussed in further detail at your follow- up appointment, if applicable.
[2020-07-26 14:10] VITALS: BP 148/79; PULSE 73; RESP 16; TEMP 36.6
[2020-07-26 17:30] VITALS: BP 138/81; PULSE 81
--- NOTE | 2020-07-29 10:59 | CASEMGMT ---
Social Work Labor and Delivery Unit Date of Intervention:?07.27.2020 Time of Intervention:?1050 ? Reason for follow-up:Communication with agency:?[facility] ([facility]) Toña Cali, , extension [phone]. ? Summary of Family/Staff/Agency Contact:? Called [facility] today and spoke with Toña. ?Report due to concerns/risk factors present in both parents having mental health issues, father of baby not in current treatment. ?Concern for limited coping skills, as mother of baby only able to identify smoking cigarettes to this singer songwriter; irritable response to this singer songwriter when topic of shaken baby broached. ?Reported remote history of methamphetamine use in the mother of baby, but not sure of these details. ??Reported mother's declination of supportives services such as [employer] Me Grow or [facility]. ?Strengths including mom having a job and also in treatment with local counseling agency for medications. ??Toña made aware that mom and baby have been discharged from the hospital. ? Assessment:?Mother of baby had been provided community resource information and information on mood and anxiety disorders prior to discharge from the hospital. ?? ? Plan:?No other services requested or indicated. ? -LANI Schwarz, CITY PLANT SUPERVISOR
== END 2020-07-26 17:40 | disposition home or self-care (01) | DRG 560 ==
PROVIDERS: Obstetrics & Gynecology; Admitting Provider Obstetrics & Gynecology; Visit Provider Obstetrics & Gynecology
DX: O24.429 Gestational diabetes mellitus in childbirth, unspecified control (principal); O70.0 First degree perineal laceration during delivery; Z37.0 Single live birth; Z3A.37 37 weeks gestation of pregnancy; O99.214 Obesity complicating childbirth; E66.9 Obesity, unspecified; O99.334 Smoking (tobacco) complicating childbirth; F17.200 Nicotine dependence, unspecified, uncomplicated; Z87.42 Personal history of other diseases of the female genital tract; Z86.59 Personal history of other mental and behavioral disorders
CPT/HCPCS: 59025; 59050; 80307; 82962; 85025; 86850; 86900; 86901; 99218; J7120; G0378

== ENCOUNTER 2021-03-11 20:18 | Emergency (ER) | payer MEDICAID, SELFPAY ==
[2020-07-23 19:12] VITALS: BMI 43.5
[2021-03-11 20:18] VITALS: BP 144/125; PULSE 88; RESP 18; TEMP 35.8; O2SAT 98; BMI 40.7
[2021-03-11 21:33] VITALS: RESP 18
--- NOTE | 2021-03-11 21:56 | CT_ITS ---
STUDY: CT ABDOMEN AND PELVIS WITHOUT CONTRAST REASON FOR EXAM: Female, 31 years old. RLQ pain RADIATION DOSAGE (If Supplied By Facility): CTDIvol = ( 21.68 ) mGy, DLP = ( 1186.00 ) mGycm TECHNIQUE: Transaxial images were obtained from the dome of the diaphragm to the symphysis pubis without oral contrast, and without intravenous contrast. Sagittal and coronal images were reconstructed. Individualized dose optimization techniques were used for this CT. COMPARISON: None. FINDINGS: The visualized lung bases are unremarkable. The visualized portions of the heart are within normal limits. Normal liver. Normal gallbladder and extrahepatic biliary system. Normal spleen. Normal pancreas. Normal bilateral adrenal glands. Normal right kidney. Normal left kidney. Normal visualized stomach. Normal small intestine. Normal colon. The appendix is visualized and appears normal. Normal abdominal aorta. Normal inferior vena cava. Normal retroperitoneum. Normal urinary bladder. Normal abdominal wall. Normal osseous structures. CT/Abdomen/Pelvis without Cont IMPRESSION: Normal unenhanced CT of the abdomen and pelvis. Electronically Signed: Eduardo Christy MD at 22:59 EDT Tel , Service support ,
[2021-03-11] MEDS: 0.9% Normal Saline 1,000 ML 1000 ML IV (22:18)
[2021-03-11] MEDS: Ondansetron 4 MG/2 ML Vial IV (22:18)
[2021-03-11] MEDS: Morphine 4 MG/ML Syringe IV (22:18)
[2021-03-11 22:31] LABS: Absolute Lymphocyte Count 1.82 X10^3/uL (0.83-4.51); Absolute Neutrophil Count 8.9 X10^3/uL (2.0-7.7); Basophil# 0.05 X10^3/uL; Basophil% 0.4 % (0-1); Eosinophil# 0.16 X10^3/uL; Eosinophils% 1.4 % (0-5); Hematocrit 44.7 % (37-47); Hemoglobin 14.3 g/dL (12.0-15.0); Lymphocyte # 1.82 X10^3/ul (0.83-4.51); Lymphocyte % 15.6 % (19-41); Mean Corpuscular Volume 81.1 fL (81-99); Mean Platelet Vol. 11.1 fl (6.2-12.0); Monocyte# 0.68 X10^3/uL; Monocyte% 5.8 % (0-10); NRBC Flagged by Analyzer 0 % (0-5); Neutrophil % 76.4 % (47-70); Platelet Count 346 K/mm3 (150-450); RBC Distribution Width CV 13.8 % (11.6-14.6); RBC Distribution Width SD 40.4 fl (35.1-43.9); Red Blood Count 5.51 M/mm3 (4.2-5.4); White Blood Count 11.7 K/mm3 (4.4-11.0)
[2021-03-11 22:33] LABS: Color, Urine Yellow (Yellow); Glucose, Dipstick Normal (Normal); Ketone-Dipstick Negative (Negative); Leukocyte Esterase-Dipstick 25 /ul (Negative); Nitrite-Dipstick Negative (Negative); Occult Blood-Urine Negative /ul (Negative); Protein-Dipstick 15 mg/dl (Negative); Urine Bilirubin Dipstick Negative (Negative); Urine Clarity Clear (Clear); Urine Urobilinogen Normal (Normal)
[2021-03-11 22:34] LABS: Internal QC Validated? YES +Cl - CLEAR BKGD; Pregnancy, Urine Negative Negative
[2021-03-11 22:44] LABS: ALB/GLOB Ratio 0.8 RATIO (0.9-2.4); AST(SGOT) 16 U/L (15-37); Alanine Aminotransfer ALT/SGPT 34 U/L (13-56); Albumin, Serum 3.5 g/dL (3.2-5.0); Alkaline Phosphatase 93 U/L (45-117); Anion Gap 4 (5-15); BUN 9 mg/dL (7-18); BUN/Creat Ratio 12.1 RATIO (10-20); Calcium,Total 9.6 mg/dL (8.5-10.1); Chloride 105 mmol/L (98-107); Creatinine, Serum 0.74 mg/dL (0.55-1.02); EST Glomerular Filtration Rate 98 mL/min (>60); Est Glom Filt Rate - Afr Amer 119 mL/min (>60); Estimated Creatinine Clearance 100.94 ml/min; Globulin 4.4 g/dL (2.2-4.2); Glucose 95 mg/dL (74-106); Lipase 68 U/L (73-393); Protein, Total 7.9 g/dL (6.4-8.2); Sodium Level 137 mmol/L (136-145)
--- NOTE | 2021-03-11 23:03 | ED.VIS.GI ---
HPI HPI - GI History of Present Illness Chief Complaint: Abd Pain Informant: patient Narrative Narrative: Presents for worsening abdominal pain starting yesterday 7 PM. States pain across the upper mid abdomen. This morning went to urgent care states had CBC urine and hCG that was normal. She was sent for an outpatient ultrasound with results on her phone with a normal gallbladder. She states pain has worsened since then. She was sent with Pepcid and Zofran with no relief. Currently mild nausea. Last meal was 4 hours ago. No abdominal surgical history. History of PCOS on Metformin along with anxiety and depression. No Covid vaccination history. Prior similar symptoms: No PFSH PFSH Medical History Gestational diabetes History of anxiety History of borderline personality disorder History of PCOS Home Medications bupropion HCl 100 mg PO DAILY 01/16/19 [History Last Taken 07/23/20 08:00] escitalopram oxalate 20 mg PO DAILY 01/16/19 [History Last Taken 07/23/20 08:00] PNV cmb#95-ferrous fumarate-FA 1 tab PO DAILY 07/23/20 [History Last Taken 07/23/20 08:00] Allergy/AdvReac Type Severity Reaction Status Date / Time amoxicillin Allergy Rash Verified 03/11/21 20:20 omeprazole [From Prilosec] Allergy Itching Verified 03/11/21 20:20 omeprazole magnesium Allergy Itching Verified 03/11/21 20:20 [From Prilosec] Social History Smoking Status: Current every day smoker tobacco type: cigarettes ROS ROS ED Constitutional Constitutional ED: Denies chills, fever(s) or sweats Eyes Eyes: Denies change in vision ENT ENT ED: Denies dysphagia or sore throat Cardiovascular Cardiovascular: Denies chest pain, leg edema, palpitations or racing heartbeat Respiratory/Chest Respiratory/Chest: Denies cough, dyspnea or dyspnea on exertion Gastrointestinal Gastrointestinal: Reports abdominal pain and nausea; Denies diarrhea or vomiting Genitourinary Genitourinary ED: Denies dysuria, hematuria or urinary frequency Musculoskeletal Musculoskeletal: Denies back pain, extremity pain or neck pain Integumentary Denies rash or wounds Neurologic Neurologic: Denies headache(s), paresthesias or weakness EXAM Physical Exam Const Vital Signs: 03/11/21 20:18 03/11/21 21:33 03/11/21 23:21 Temperature 96.5 F L 97.9 F Temperature Source Temporal Temporal Pulse Rate 88 81 Respiratory Rate 18 18 17 Blood Pressure 144/125 H 142/82 H Blood Pressure Mean 131 102 Pulse Ox 98 99 Oxygen Delivery Method Room Air Room Air Positive well nourished and well developed General Appearance ED: well developed and NAD HEENT Reports moist mucous membranes normocephalic and atraumatic Eyes PERRL, EOMs intact bilaterally and conjunctivae normal General Eye ED: Yes normal appearance of both eyes Neck no lymphadenopathy and supple General: Negative for tenderness Chest Wall Chest: Negative for tenderness Resp normal respiratory effort and normal air movement Effort and Inspection: symmetric chest movement; Negative for respiratory distress Cardio regular rate, regular rhythm and no murmurs Peripheral Pulses: pulses 2+ throughout GI normal to inspection, nondistended, normoactive bowel sounds GI Narrative: Right lower quadrant tenderness on palpation along with mid abdominal tenderness. Negative Rovsing's. Palpation: tender; Negative for guarding or rebound tenderness present Back/Spine no CVA tenderness and no thoracic nor lumbar tenderness Extremity normal to inspection General Extremety ED: Negative for edema or tenderness General Extremity: Negative for edema Neuro oriented x3 and no sensory deficits noted Sensorium / Orientation: awake and alert Skin no rashes or lesions noted and no wounds MDM MDM MDM Narrative Medical decision making narrative: Patient tender right lower quadrant on my exam. Appendicitis work-up initiated. Labs white count 11.7. I did check a liver and lipase also normal urine negative hCG negative. Noncontrast CT scan obtained no acute process including a noted normal appendix. She was initially given Zofran fluids and morphine. Reevaluation she states symptoms improve reevaluation of abdomen at 2330 soft and nontender in that region. Discussed with patient monitoring symptoms at home symptoms return or worsen she needs to return for reevaluation. She will stay with soft diet at this time. She has Zofran's at home. All questions answered. Lab Data Attestation: I reviewed the patient's lab results. Labs: Laboratory Results - last 24 hr 03/11/21 03/11/21 03/11/21 21:25 21:29 21:29 WBC 11.7 H RBC 5.51 H Hgb 14.3 Hct 44.7 MCV 81.1 MCH 26.0 L MCHC 32.0 RDW Std Deviation 40.4 RDW Coeff of [place] 13.8 Plt Count 346 MPV 11.1 Immature Gran % (Auto) 0.400 Neut % (Auto) 76.4 H Lymph % (Auto) 15.6 L [place] % (Auto) 5.8 Eos % (Auto) 1.4 Baso % (Auto) 0.4 Absolute Neuts (auto) 8.9 H Absolute Lymphs (auto) 1.82 Nucleated RBC % 0 Sodium 137 Potassium 4.0 Chloride 105 Carbon Dioxide 28.0 Anion Gap 4 L BUN 9 Creatinine 0.74 Estim Creat Clear Calc 100.94 Est GFR (MDRD) Af Amer 119 Est GFR (MDRD) Non-Af 98 BUN/Creatinine Ratio 12.1 Glucose 95 Calcium 9.6 Total Bilirubin 0.30 AST 16 ALT 34 Alkaline Phosphatase 93 Total Protein 7.9 Albumin 3.5 Globulin 4.4 H Albumin/Globulin Ratio 0.8 L Lipase 68 L Urine Color Yellow Urine Clarity Clear Urine pH 5.0 Ur Specific [place] 1.020 Urine Protein 15 H Urine Glucose (UA) Normal Urine Ketones Negative Urine Occult Blood Negative Urine Nitrite Negative Urine Bilirubin Negative Urine Urobilinogen Normal Ur Leukocyte Esterase 25 H Urine Test Negative Radiography Diagnostic Testing: Radiology Impression Abdomen/Pelvis CT 03/11/21 21:56 IMPRESSION: Normal unenhanced CT of the abdomen and pelvis. Electronically Signed: Eduardo Christy MD at 22:59 EDT Tel , Service support , Discharge Plan Triage Chief Complaint: Abd Pain ED Provider: Good [place]on Dx/Rx/DC Orders Clinical Impression: Abdominal pain Instructions: Abdominal Pain Prescriptions: No Action bupropion HCl 100 MG tablet sustained-release 12 hr 100 mg PO DAILY RF: 0 escitalopram oxalate 20 MG tablet 20 mg PO DAILY RF: 0 PNV cmb#95-ferrous fumarate-FA 1 EACH tablet 1 tab PO DAILY RF: 0 Primary Care Provider: Care Physician,No Primary Referrals: Care Physician,No Primary [Primary Care Provider] - Activity Restrictions/Additional Instructions: Your labs are normal today. Your CAT scan with a normal appendix today. Monitor symptoms at home. If symptoms return or worsening return for reevaluation otherwise follow-up with your doctor. Disposition Disposition: Home, Self Care
[2021-03-11 23:21] VITALS: BP 142/82; PULSE 81; RESP 17; TEMP 36.6; O2SAT 99
== END 2021-03-11 23:59 | disposition home or self-care (01) ==
PROVIDERS: Emergency Provider Emergency Medicine
DX: R10.9 Unspecified abdominal pain (principal); R11.0 Nausea; F32.9 Major depressive disorder, single episode, unspecified; E28.2 Polycystic ovarian syndrome; F41.9 Anxiety disorder, unspecified; F60.3 Borderline personality disorder; F17.210 Nicotine dependence, cigarettes, uncomplicated; Z79.899 Other long term (current) drug therapy
CPT/HCPCS: 74176; 80053; 81002; 81025; 83690; 85025; 87426; 96361; 96374; 96375; 99283; J7030; A4216; J2405

== ENCOUNTER 2021-09-20 08:21 | Emergency (ER) | payer MEDICAID, SELFPAY ==
[2021-09-20 08:22] VITALS: BP 140/94; PULSE 79; RESP 16; TEMP 36.3; O2SAT 98; BMI 37.9
--- NOTE | 2021-09-20 08:34 | EKG12_ITS ---
Test Reason : Blood Pressure : / mmHG Vent. Rate : 072 BPM Atrial Rate : 072 BPM P-R Int : 140 ms QRS Dur : 086 ms QT Int : 370 ms P-R-T Axes : 012 034 030 degrees QTc Int : 405 ms Normal sinus rhythm with sinus arrhythmia Normal ECG Confirmed by LUZ MATA, TAPAN ([id number]), editor newspaper RAFAEL DEE ([id number]) on 09/22/2021 12:18:32 PM Referred By: MONSE Confirmed By:TAPAN ESCOBAR MD
--- NOTE | 2021-09-20 08:35 | EDS_ITS ---
HPI History of Present Illness Chief Complaint: Dizziness Narrative Narrative: Patient with past medical history of PCOS presents with lightheadedness and dizziness that she experienced almost an hour ago. She works at [employer] and states that at 745 she became very lightheaded and dizzy as if the room were spinning which caused her to almost fall over. She denies any chest pain or shortness of breath. No headache. No prodromal symptoms. She states that she has been well-hydrated recently and has not had any nausea or vomiting. No diarrhea. No dysuria or hematuria. Last menstrual period was September 01. She states that she was unable to walk because she was so dizzy and lightheaded. The forced her to sit down and drink 2 bottles of water. She feels improved and is now able to ambulate. She presents for evaluation of her lightheadedness/dizziness. She states that she did not have any nausea or vomiting with this and once again, no headaches. [facility] Medical History Gestational diabetes History of anxiety History of borderline personality disorder History of PCOS Home Medications bupropion HCl 400 mg PO DAILY 01/16/19 [History Last Taken 07/23/20 08:00] escitalopram oxalate 20 mg PO DAILY 01/16/19 [History Last Taken 07/23/20 08:00] metformin 1,000 mg PO BID 09/20/21 [History Last Taken Unknown] terbinafine HCl 25 mg PO DAILY 09/20/21 [History Last Taken Unknown] Allergy/AdvReac Type Severity Reaction Status Date / Time amoxicillin Allergy Rash Verified 09/20/21 08:25 omeprazole [From Prilosec] Allergy Itching Verified 09/20/21 08:25 omeprazole magnesium Allergy Itching Verified 09/20/21 08:25 [From Prilosec] Social History Smoking Status: Current every day smoker tobacco type: cigarettes ROS ROS ED ROS Narrative Constitutional: No fever, no chills. HEENT: No sore throat. No neck pain. No loss of vision. No rhinorrhea. Cardiovascular: No chest pain. No palpitations. No pedal edema. Respiratory: No cough, no shortness of breath. Abdominal: No abdominal pain. No nausea. No vomiting. Genitourinary: No dysuria. No hematuria. Musculoskeletal: No myalgias. No arthralgias. Neurologic: No headaches. Positive dizziness. Positive lightheadedness. Skin: No rash. No change in color. Psychiatric: No depression. No anxiety. EXAM Physical Exam Narrative Exam Narrative: Afebrile. Vital signs noted. HEENT: Normocephalic. Atraumatic. PERRL, EOMI. Neck soft and supple. No point tenderness or step off. Cardiovascular: Regular rate and rhythm. No murmurs, rubs, or gallops appreciated. Respiratory: No tachypnea. Lungs clear to auscultation bilaterally. Gastrointestinal: Abdomen soft, nontender, with normoactive bowel sounds. No rebound or guarding. Neurological: Awake. Alert. Oriented x3. Nonfocal, nonlateralizing. Ambulatory in ED from bathroom to room without difficulty. Skin: No rash. Normal color. No pallor. Musculoskeletal: No pedal edema. Full range of motion extremities. Const Vital Signs: 09/20/21 08:22 09/20/21 08:54 09/20/21 09:34 Temperature 97.4 F L Temperature Source Temporal Pulse Rate 79 Pulse Rate [Lying] 67 Pulse Rate [Sitting] 75 Pulse Rate [Standing] 77 Respiratory Rate 16 Respiratory Effort Normal Non-Labored Respiratory Pattern Normal Blood Pressure 140/94 H Blood Pressure [Lying] 123/80 H Blood Pressure [Sitting] 127/84 H Blood Pressure [Standing] 138/88 H Blood Pressure Mean 109 Blood Pressure Mean [Lying] 94 Blood Pressure Mean [Sitting] 98 Blood Pressure Mean [Standing] 104 Pulse Ox 98 Oxygen Delivery Method Room Air MDM MDM MDM Narrative Medical decision making narrative: I do feel that the patient is describing more near syncope than actual vertiginous symptoms, as her symptoms have almost fully resolved. I will obtain basic laboratory work, orthostatics, and an EKG. I do not feel CT of the brain is indicated. Her EKG demonstrates normal sinus rhythm at 72 bpm with a sinus arrhythmia, but no STEMI or acute ST changes. CBC is grossly normal with a normal white count and normal hemoglobin. Urinalysis is negative for infection or ketones. Electrolyte panel is grossly normal, no profound dehydration, normal kidney function/creatinine. Upon repeat examination, she states she is feeling improved. Her orthostatics are negative. After IV fluids, I feel she can be discharged safely home with follow-up to her primary care provider. She is suspicious that it may be a side effect from her terbinafine which she started taking orally recently. While this is not a common side effect, he was told that medications affect different people in different ways. She will contact her primary care provider should her symptoms continue. Return instructions to the emergency department were reviewed. Disposition is discharged home in stable condition. Lab Data Attestation: I reviewed the patient's lab results. Labs: Laboratory Results - last 24 hr 09/20/21 09/20/21 09/20/21 08:50 08:50 08:50 WBC 9.4 RBC 5.07 Hgb 13.3 Hct 41.7 MCV 82.2 MCH 26.2 L MCHC 31.9 L RDW Std Deviation 40.4 RDW Coeff of [place] 13.6 Plt Count 278 MPV 10.8 Immature Gran % (Auto) 0.300 Neut % (Auto) 69.4 Lymph % (Auto) 22.0 [place] % (Auto) 5.7 Eos % (Auto) 2.1 Baso % (Auto) 0.5 Absolute Neuts (auto) 6.5 Absolute Lymphs (auto) 2.07 Nucleated RBC % 0 Sodium 136 Potassium 4.4 Chloride 107 Carbon Dioxide 26.0 Anion Gap 3 L BUN 13 Creatinine 0.74 Estim Creat Clear Calc 96.86 Est GFR (MDRD) Af Amer 119 Est GFR (MDRD) Non-Af 98 BUN/Creatinine Ratio 17.6 Glucose 100 Calcium 9.5 Urine Color Urine Clarity Urine pH Ur Specific [place] Urine Protein Urine Glucose (UA) Urine Ketones Urine Occult Blood Urine Nitrite Urine Bilirubin Urine Urobilinogen Ur Leukocyte Esterase Urine RBC Urine WBC Ur Squamous Epith Cells Urine Bacteria Urine Mucus Urine Test Negative 09/20/21 08:50 WBC RBC Hgb Hct MCV MCH MCHC RDW Std Deviation RDW Coeff of [place] Plt Count MPV Immature Gran % (Auto) Neut % (Auto) Lymph % (Auto) [place] % (Auto) Eos % (Auto) Baso % (Auto) Absolute Neuts (auto) Absolute Lymphs (auto) Nucleated RBC % Sodium Potassium Chloride Carbon Dioxide Anion Gap BUN Creatinine Estim Creat Clear Calc Est GFR (MDRD) Af Amer Est GFR (MDRD) Non-Af BUN/Creatinine Ratio Glucose Calcium Urine Color Yellow Urine Clarity Clear Urine pH 6.0 Ur Specific [place] 1.010 Urine Protein Negative Urine Glucose (UA) Normal Urine Ketones Negative Urine Occult Blood Negative Urine Nitrite Negative Urine Bilirubin Negative Urine Urobilinogen Normal Ur Leukocyte Esterase 25 H Urine RBC 0 SEEN Urine WBC 0 SEEN Ur Squamous Epith Cells 0-5 SEEN Urine Bacteria 0 SEEN Urine Mucus 0 SEEN Urine Test Discharge Plan Triage Chief Complaint: Dizziness ED Provider: Quoc Spain Dx/Rx/DC Orders Clinical Impression: Dizziness, Light-headedness, Near syncope Prescriptions: No Action bupropion HCl 100 MG tablet sustained-release 12 hr 400 mg PO DAILY RF: 0 escitalopram oxalate 20 MG tablet 20 mg PO DAILY RF: 0 terbinafine HCl 250 mg tablet 25 mg PO DAILY RF: 0 metformin 1,000 mg tablet 1,000 mg PO BID RF: 0 Primary Care Provider: Gail Raza NP Referrals: Gail Raza NP, [employer] PROFESSOR-[facility] [Primary Care Provider] - 3-5 Days if not improving Disposition Disposition: Home, Self Care
[2021-09-20] MEDS: 0.9% Normal Saline 1,000 ML 1000 ML IV (08:52)
[2021-09-20 08:56] LABS: Bacteria 0 SEEN /hpf (None Seen); Mucous, Urine 0 SEEN /hpf (<or=2+); Red Blood Cells-Urine 0 SEEN /hpf (0-5); White Blood Cells 0 SEEN /hpf (0-5)
[2021-09-20 09:00] LABS: Absolute Lymphocyte Count 2.07 X10^3/uL (0.83-4.51); Absolute Neutrophil Count 6.5 X10^3/uL (2.0-7.7); Basophil# 0.05 X10^3/uL; Basophil% 0.5 % (0-1); Eosinophils% 2.1 % (0-5); Hematocrit 41.7 % (37-47); Hemoglobin 13.3 g/dL (12.0-15.0); Lymphocyte # 2.07 X10^3/ul (0.83-4.51); Mean Corp Hgb Conc 31.9 g/dL (32-36); Mean Corpuscular Hgb 26.2 pg (27.0-32.0); Mean Corpuscular Volume 82.2 fL (81-99); Mean Platelet Vol. 10.8 fl (6.2-12.0); Monocyte# 0.54 X10^3/uL; Monocyte% 5.7 % (0-10); NRBC Flagged by Analyzer 0 % (0-5); Neutrophil # 6.51 X10^3/uL (2.7-7.7); Neutrophil % 69.4 % (47-70); Platelet Count 278 K/mm3 (150-450); RBC Distribution Width CV 13.6 % (11.6-14.6); RBC Distribution Width SD 40.4 fl (35.1-43.9); Red Blood Count 5.07 M/mm3 (4.2-5.4); White Blood Count 9.4 K/mm3 (4.4-11.0)
[2021-09-20 09:09] LABS: Anion Gap 3 (5-15); BUN 13 mg/dL (7-18); BUN/Creat Ratio 17.6 RATIO (10-20); Calcium,Total 9.5 mg/dL (8.5-10.1); Chloride 107 mmol/L (98-107); Creatinine, Serum 0.74 mg/dL (0.55-1.02); EST Glomerular Filtration Rate 98 mL/min (>60); Est Glom Filt Rate - Afr Amer 119 mL/min (>60); Estimated Creatinine Clearance 96.86 ml/min; Glucose 100 mg/dL (74-106); Potassium 4.4 mmol/L (3.5-5.1); Sodium Level 136 mmol/L (136-145)
[2021-09-20 09:13] LABS: Color, Urine Yellow (Yellow); Glucose, Dipstick Normal (Normal); Ketone-Dipstick Negative (Negative); Leukocyte Esterase-Dipstick 25 /ul (Negative); Nitrite-Dipstick Negative (Negative); Occult Blood-Urine Negative /ul (Negative); Protein-Dipstick Negative (Negative); Urine Bilirubin Dipstick Negative (Negative); Urine Clarity Clear (Clear); Urine Urobilinogen Normal (Normal)
[2021-09-20 09:23] LABS: Internal QC Validated? YES +Cl - CLEAR BKGD; Squamous Epithelial Cells - UA 0-5 SEEN /hpf (5-10)
[2021-09-20 09:24] LABS: Pregnancy, Urine Negative Negative
[2021-09-20 09:34] VITALS: BP 123/80; BP 127/84; BP 138/88; PULSE 67; PULSE 75; PULSE 77
[2021-09-20 10:15] VITALS: BP 119/85; PULSE 79; RESP 21; O2SAT 98
== END 2021-09-20 10:21 | disposition home or self-care (01) ==
PROVIDERS: Emergency Provider Emergency Medicine; PCP Nurse Practitioner Family; Visit Provider Emergency Medicine
DX: R55 Syncope and collapse (principal); R42 Dizziness and giddiness; I49.8 Other specified cardiac arrhythmias; E28.2 Polycystic ovarian syndrome; F17.210 Nicotine dependence, cigarettes, uncomplicated
CPT/HCPCS: 80048; 81001; 81025; 85025; 93005; 99285; J7030; A4216

== ENCOUNTER 2022-11-23 21:11 | Emergency (ER) | payer MEDICAID, SELFPAY ==
[2022-11-23 21:11] VITALS: BP 155/102; PULSE 92; RESP 20; TEMP 36.1; O2SAT 98; BMI 37.0
== END 2022-11-23 22:10 | disposition left against medical advice (07) ==
LOC: ED 22:34
PROVIDERS: PCP Nurse Practitioner Family
DX: K08.89 Other specified disorders of teeth and supporting structures (principal)

== ENCOUNTER 2024-05-29 12:14 | Emergency (ER) | payer MEDICAID, SELFPAY ==
[2024-05-29 12:15] VITALS: BP 186/106; PULSE 85; RESP 18; TEMP 37.1; O2SAT 100; BMI 38.7
[2024-05-29 12:34] VITALS: BP 150/91
--- NOTE | 2024-05-29 12:49 | EDS_ITS ---
HPI History of Present Illness Chief Complaint: Dental Narrative Narrative: Patient has been having dental pain mandibular molars more on the right than the left, since last week was started on amoxicillin 4 days ago. 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 Someone checked her temperature and she was 100.5. She went to urgent care, had a low-grade temp there, they sent her here to the ER for further evaluation. She denies any other symptoms. [facility] Medical History Gestational diabetes History of anxiety History of borderline personality disorder History of PCOS Home Medications ?Medication ?Instructions ?Recorded ?Last Taken ?Type bupropion HCl 100 mg tablet,12 hr 400 mg PO DAILY depression 01/16/19 07/23/20 08:00 History sustained-release escitalopram oxalate 20 mg tablet 20 mg PO DAILY depression 01/16/19 07/23/20 08:00 History metformin 1,000 mg tablet 1,000 mg PO BID 09/20/21 Unknown History terbinafine HCl 250 mg tablet 25 mg PO DAILY 09/20/21 Unknown History clindamycin HCl 300 mg capsule 300 mg PO Q6H #28 CAPSULES 05/29/24 Unknown Rx (Cleocin HCl) Allergy/AdvReac Type Severity Reaction Status Date / Time omeprazole (From Prilosec) Allergy Itching Verified 05/29/24 12:15 omeprazole magnesium (From Allergy Itching Verified 05/29/24 12:15 Prilosec) Social History Smoking Status: Current every day smoker tobacco type: e-cigarettes ROS ROS ED Constitutional Constitutional ED: Reports chills, fever(s) and subjective Eyes Eyes: Denies change in vision or double vision ENT ENT ED: Reports dental pain and other Details: jaw pain bilat anterior ; Denies ear pain, rhinorrhea, sinus pain, sore throat or throat swelling Cardiovascular Cardiovascular: Denies chest pain or palpitations Respiratory/Chest Respiratory/Chest: Denies cough or dyspnea Gastrointestinal Gastrointestinal: Denies abdominal pain, diarrhea, nausea or vomiting Genitourinary Genitourinary ED: Denies dysuria or hematuria Musculoskeletal Musculoskeletal: Denies back pain or neck pain Integumentary Denies abscess or rash Neurologic Neurologic: Denies headache(s), paresthesias or weakness EXAM Physical Exam Const Vital Signs: 05/29/24 12:15 05/29/24 12:34 Temperature 98.8 F Temperature Source Oral Pulse Rate 85 Respiratory Rate 18 Blood Pressure 186/106 H 150/91 H Blood Pressure Mean 132 110 Pulse Ox 100 Oxygen Delivery Method Room Air Positive well nourished and well developed Constitutional Narrative: well-appearing General Appearance ED: well developed and NAD HEENT Reports TM's clear HEENT Narrative: No trismus. Floor of mouth is soft and nondistended and nontender there is no tongue elevation. Posterior pharynx is clear. There is no trismus. She has no dysphonia. There is no stridor. There is reproducible tenderness where she states she has pain in her bilateral anterior mandible. There is no external signs of asymmetry or swelling or abscess here and no palpable lumps or lymphadenopathy. Inside the mouth, she has obvious dental defects of first or second molars mandibular bilaterally, but there are also what appeared to be cavities at the gumline of bicuspids bilaterally both mandibular, and both of these teeth are mildly tender without associated gingival abscess or active discharge/bleeding. These are in the area that could be consistent with the pain in the jaw that she is having and tender. Face and Sinus: sinuses nontender Tympanic Membrane ED: Yes TM's clear Throat: posterior oropharynx normal Eyes PERRL and EOMs intact bilaterally Neck no lymphadenopathy and supple Resp normal respiratory effort Neuro oriented x3 and CN's II-XII intact bilaterally Sensorium / Orientation: alert Gait (Neuro): normal gait Psych mental status grossly normal and thought process normal Skin no rashes or lesions noted and no wounds MDM MDM MDM Narrative Medical decision making narrative: This patient is well-appearing with normal vital signs except for a little bit of hypertension, she was 186/106 in triage but on reevaluation in the room she is 150/91. I do not think this needs to be treated emergently. I think her pain and fever are probably related to her dentition and early infection. She said that the practitioner at urgent care was concerned about the possibility of a deep space neck infection. I do not think that is the case at this time. She has none of the symptoms I would expect with someone with a deep space neck infection, and her exam is very benign, but she does have tenderness and poor dentition at exactly the areas where she hurts which is why I do not think she needs further workup right now other than the change the antibiotic. We will change her amoxicillin to clindamycin she was advised to use probiotic or yogurt she is comfortable with that overall plan she has an appointment with her dentist tomorrow. Discharge Plan Triage Chief Complaint: Dental ED Provider: Matthew Sky Dx/Rx/DC Orders Clinical Impression: Infected dental caries Instructions: ED Dental Pain Prescriptions: New clindamycin HCl [Cleocin HCl] 300 mg capsule 300 mg PO Q6H Qty: 28 0RF No Action bupropion HCl 100 MG tablet sustained-release 12 hr 400 mg PO DAILY escitalopram oxalate 20 MG tablet 20 mg PO DAILY terbinafine HCl 250 mg tablet 25 mg PO DAILY metformin 1,000 mg tablet 1,000 mg PO BID Primary Care Provider: Gail Raza NP Referrals: Gail Raza NP, [employer] TECHNICIAN-C [Primary Care Provider] - Dentist,Your [STAFF PHYSICIAN] - Keep Alberto appointment Activity Restrictions/Additional Instructions: You have a higher chance of having diarrhea and/or C. difficile infection being on clindamycin. To help mitigate this risk, take either a twice daily probiotic or eat yogurt every day while you are on the antibiotics. Stop taking the amoxicillin and take the clindamycin instead. Feel free to return to the ER if you develop any new symptoms along with your fevers, that are presumed related to your dental issue. Print Language: Slovenian Disposition Disposition: Home, Self Care
[2024-05-29 12:59] VITALS: BP 150/91; PULSE 87; RESP 16; TEMP 37.1; O2SAT 99
== END 2024-05-29 13:00 | disposition home or self-care (01) ==
PROVIDERS: Emergency Provider Emergency Medicine; PCP Nurse Practitioner Family; Referring Provider Emergency Medicine; Visit Provider Emergency Medicine
DX: K02.9 Dental caries, unspecified (principal); F17.290 Nicotine dependence, other tobacco product, uncomplicated
CPT/HCPCS: 99282